=== PATIENT | female | born 1965 | race African-American/Black ===

== ENCOUNTER 2018-10-26 01:10 | Inpatient (IN) | payer MEDICAID ==
[~2018-10-26] VITALS: Ht 160 cm; Wt 86.7 kg
[2018-10-26 01:10] VITALS: BP 174/103
[2018-10-26 03:53] LABS: ANION GAP 11.2 (8-16); CARBON DIOXIDE 28.2 mmol/L (21-32); POTASSIUM 3.4 mmol/L (3.5-5.1)
[2018-10-26 03:54] LABS: ALBUMIN 3.4 g/dL (3.4-5.0); CREATININE 0.8 mg/dL (0.6-1.3); TOTAL BILIRUBIN 0.4 mg/dL (0.0-1.0)
[2018-10-26 03:59] LABS: BARBITURATE, URINE NEG. ng/ml (NEG <=200); BENZODIAZEPINE, URINE NEG. ng/mL (NEG <=200); CANNABINOID, URINE NEG. ng/mL (NEG <=50); COCAINE, URINE NEG. ng/mL (NEG <=300); OPIATE, URINE NEG. ng/mL (NEG <=2000); PHENCYCLIDINE SCREEN,URINE NEG. ng/mL (NEG <=25)
[2018-10-26 04:11] LABS: BASOPHILS % (AUTO) 0.4 % (0.0-2.0); EOSINOPHILS # (AUTO) 0.1 K/uL (0-0.4); EOSINOPHILS % (AUTO) 0.9 % (0.0-4.0); HEMATOCRIT 41.7 % (36-48); HEMOGLOBIN 14.1 g/dL (12.0-16.0); LYMPHOCYTES # (AUTO) 2.3 K/uL (2.5-16.5); LYMPHOCYTES % (AUTO) 30.9 % (20.5-51.1); MEAN CORPUSCULAR HEMOGLOBIN 33 pg (27-31); MEAN CORPUSCULAR HGB CONC 34 g/dL (33-37); MEAN CORPUSCULAR VOLUME 96.9 fL (80-94); MONOCYTES # (AUTO) 0.3 K/uL (0.8-1.0); MONOCYTES % (AUTO) 3.4 % (1.7-9.3); NEUTROPHILS # (AUTO) 4.9 K/uL (1.8-7.7); NEUTROPHILS % (AUTO) 64.4 % (42.2-75.2); PLATELET COUNT (AUTO) 243 K/uL (140-450); RED CELL DISTRIBUTION WIDTH 12.8 % (11.6-13.7); WHITE BLOOD COUNT (AUTO) 7.6 K/uL (4.8-10.8)
[2018-10-26 04:20] LABS: SALICYLATE < 2.8 mg/dL (2.8-20.0)
[2018-10-26 06:45] LABS: CREATINE KINASE MB 1.7 ng/mL (0-3.6)
[2018-10-26] MEDS ORDERED: ACETAMINOPHEN 325 MG TAB PO PRN (08:50)
[2018-10-26] MEDS ORDERED: HYDROcodone/APAP 7.5/325 MG 1 TAB PO PRN (08:50)
[2018-10-26] MEDS ORDERED: ONDANSETRON 4 MG/2 ML VIAL IVP PRN (08:50)
[2018-10-26] MEDS ORDERED: NACL 0.9% 1,000 ML IV ONE (09:00)
[2018-10-26] MEDS ORDERED: DOCUSATE SODIUM 100 MG GELCAP PO SCH (09:30)
[2018-10-26 10:00] VITALS: BP 142/87
[2018-10-26] MEDS ORDERED: POTASSIUM CHLORIDE 10 MEQ TABER PO SCH (10:00)
[2018-10-26] MEDS ORDERED: ZIPR20CA1 PO (10:44)
[2018-10-26] MEDS ORDERED: DIPH25SG5 PO (10:44)
[2018-10-26] MEDS ORDERED: MIRT15OD PO (10:44)
[2018-10-26] MEDS ORDERED: ORE25 PO (10:47)
[2018-10-26] MEDS ORDERED: ZIPRASIDONE 40 MG CAP PO ONE ×2 (10:50→11:00)
[2018-10-26] MEDS ORDERED: HYDROCHLOROTHIAZIDE 25 MG TAB PO SCH (11:00)
[2018-10-26] MEDS ORDERED: ZIPRASIDONE 40 MG CAP PO SCH ×3 (11:20→17:00)
[2018-10-26 11:24] LABS: AMYLASE 90 U/L (25-115); HDL CHOLESTEROL 67 mg/dL (40-60); LDL (CALC) 93 mg/dL (60-100); MAGNESIUM 2.1 mg/dL (1.8-2.4); PHOSPHORUS 3.8 mg/dL (2.5-4.9); TRIGLYCERIDES 45 mg/dL (30-150)
[2018-10-26 11:25] LABS: LIPASE 256 U/L (73-393)
[2018-10-26 11:33] LABS: PROTHROMBIN TIME 9.5 secs (10.8-13.4)
[2018-10-26 11:46] LABS: FREE T4 (FREE THYROXINE) 0.97 ng/dL (0.76-1.46); THYROID STIMULATING HORMONE 1.04 uIU/mL (0.34-3.74)
[2018-10-26 11:55] LABS: APPEARANCE,URINE SL CLOUDY (CLEAR); BILIRUBIN,URINE NEGATIVE (NEGATIVE); BLOOD, URINE NEGATIVE (NEGATIVE); COLOR,URINE YELLOW (YELLOW); LEUKOCYTE ESTERASE ,URINE SMALL (NEGATIVE); NITRITE, URINE NEGATIVE (NEGATIVE); UGLUCOSE NEGATIVE (NEGATIVE)
[2018-10-26 12:49] LABS: RBC,URINE 0-5 (RARE) /HPF (0-5); WBC,URINE 6-15 (FEW) /HPF (0-5)
[2018-10-26 16:00] VITALS: BP 138/80
[2018-10-26 20:00] VITALS: BP 127/80
[2018-10-26] MEDS ORDERED: MIRTAZAPINE 15 MG TAB PO SCH (21:00)
[2018-10-26] MEDS: DOCUSATE SODIUM 100 MG GELCAP PO SCH (21:08)
[2018-10-27] VITALS: BP 125/69
[2018-10-27 08:00] VITALS: BP 129/89
[2018-10-27] MEDS ORDERED: HYDROCHLOROTHIAZIDE 25 MG TAB PO SCH ×2 (09:00)
[2018-10-27] MEDS ORDERED: ZIPRASIDONE 40 MG CAP PO SCH (09:00)
[2018-10-27] MEDS: DOCUSATE SODIUM 100 MG GELCAP PO SCH (10:19)
[2018-10-27] MEDS ORDERED: LOTC TP (14:06)
[2018-10-27] MEDS ORDERED: CLOTRIMAZOLE 1% 30 GM CRM TUBE TP SCH (15:00)
== END 2018-10-27 14:55 | disposition home or self-care (01) | DRG 425 ==
LOC: MED 01:10 → MTU 08:52
PROVIDERS: ADMIT General Practice; ATTEND General Practice
DX: E87.6 Hypokalemia (principal); E11.65 Type 2 diabetes mellitus with hyperglycemia; R45.851 Suicidal ideations; F31.9 Bipolar disorder, unspecified; E66.9 Obesity, unspecified; I10 Essential (primary) hypertension; J45.909 Unspecified asthma, uncomplicated; F17.210 Nicotine dependence, cigarettes, uncomplicated; Z68.34 Body mass index [BMI] 34.0-34.9, adult; Z79.899 Other long term (current) drug therapy
CPT/HCPCS: 36415; 71045; 80053; 80305; 81001; 81025; 82150; 82550; 82553; 83036; 83690; 83735; 83880; 84100; 84439; 84443; 84484; 85025; 85610; 85730; 87081; 87086; 93005; 99285; G0480; G0482; Q0092; Q0163

== ENCOUNTER 2019-01-21 22:46 | Inpatient (IN) | payer MEDICAID ==
[~2019-01-21] VITALS: Ht 162.6 cm; Wt 89.4 kg
[~2019-01-21 22:46] MED LIST: DIPH25SG5 PO; LOTC TP; MIRT15OD PO; ORE25 PO; ZIPR20CA1 PO
[2019-01-21] MEDS ORDERED: diphenhydrAMINE 50 MG/ML VIAL IVP ONE (23:00)
[2019-01-21] MEDS ORDERED: LORazepam 1 MG TAB PO ONE (23:00)
[2019-01-21 23:01] VITALS: BP 126/81
--- NOTE | 2019-01-21 23:02 | NUR ---
PT BIBA FOR CP, RASH, AND COUGH. PT REPORTS SHARP 8/10 NON RADIATING CP FOR 2 HOURS. PT STATESW PAIN CAME ON SUDDENLY. [facility] GAVE 325 ASPIRIN AND 1 NITRO. PT HAS NO EDEMA PRESENT, RADIAL PULSES EVEN 2+, S1 AND S2 HEARD. PT HAS RASH COVERING WHOLE BODY, PT REPORTS SHE FIRST NOTICED RASH TODAY, STATES RASH IS ITCHY, DENIES PAIN FROM RASH. PRESENCE OF MOIST PRODUCTIVE COUGH. PT REPORTS THICK GREEN SPUTUM, PT IS SMOKER. RR EVEN, NON-LABORED, LUNG SOUNDS CLEAR THROUGHOUT. ER MD TO SEE PT. WILL CONTINUE TO MONITOR.
[2019-01-21 23:24] LABS: BASOPHILS # (AUTO) 0.1 K/uL (0.00-0.22); BASOPHILS % (AUTO) 1.1 % (0.0-2.0); EOSINOPHILS % (AUTO) 0.1 % (0.0-4.0); HEMATOCRIT 39.8 % (36-48); HEMOGLOBIN 13.3 g/dL (12.0-16.0); LYMPHOCYTES # (AUTO) 0.9 K/uL (2.5-16.5); LYMPHOCYTES % (AUTO) 14.7 % (20.5-51.1); MEAN CORPUSCULAR HEMOGLOBIN 32 pg (27-31); MEAN CORPUSCULAR HGB CONC 34 g/dL (33-37); MEAN CORPUSCULAR VOLUME 95.6 fL (80-94); MONOCYTES # (AUTO) 0.3 K/uL (0.8-1.0); NEUTROPHILS # (AUTO) 4.6 K/uL (1.8-7.7); NEUTROPHILS % (AUTO) 79.1 % (42.2-75.2); PLATELET COUNT (AUTO) 143 K/uL (140-450); RED BLOOD CELL COUNT(AUTO) 4.17 MIL/uL (4.20-5.40); RED CELL DISTRIBUTION WIDTH 12.8 % (11.6-13.7); WHITE BLOOD COUNT (AUTO) 5.8 K/uL (4.8-10.8)
[2019-01-21 23:27] LABS: ANION GAP 12.7 (8-16); CARBON DIOXIDE 24.5 mmol/L (21-32); POTASSIUM 3.2 mmol/L (3.5-5.1)
[2019-01-21 23:30] LABS: ALBUMIN 3.3 g/dL (3.4-5.0); TOTAL BILIRUBIN 0.4 mg/dL (0.0-1.0)
[2019-01-21 23:36] LABS: CREATINE KINASE MB 0.6 ng/mL (0-3.6)
--- NOTE | 2019-01-21 23:45 | NUR ---
PT RESTING IN BED WITH EYES CLOSED. PT STATED SHE IS NOT ABLE TO PROVIDE URINE AT THIS TIME. PT DENIES PRUITIS AT THIS TIME, RASH STILL VISIBLE OVER BODY. WILL CONTINUE TO MONITOR.
--- NOTE | 2019-01-22 00:19 | NUR ---
PT ABLE TO GIVE URINE SAMPLE AT THIS TIME.
[2019-01-22 00:29] LABS: BARBITURATE, URINE NEG. ng/ml (NEG <=200); BENZODIAZEPINE, URINE NEG. ng/mL (NEG <=200); CANNABINOID, URINE NEG. ng/mL (NEG <=50); COCAINE, URINE NEG. ng/mL (NEG <=300); OPIATE, URINE NEG. ng/mL (NEG <=2000); PHENCYCLIDINE SCREEN,URINE NEG. ng/mL (NEG <=25)
[2019-01-22] MEDS ORDERED: DOCUSATE SODIUM 100 MG GELCAP PO PRN (01:25)
[2019-01-22] MEDS ORDERED: HYDROcodone/APAP 5/325 MG 1 TAB TAB PO PRN (01:25)
[2019-01-22] MEDS ORDERED: MORPHINE SULFATE 4 MG/ML SYR IVP PRN (01:25)
[2019-01-22] MEDS ORDERED: ACETAMINOPHEN 325 MG TAB PO PRN (01:25)
[2019-01-22] MEDS ORDERED: ONDANSETRON 4 MG/2 ML VIAL IM/IVP PRN (01:25)
[2019-01-22 02:01] LABS: CHOL/HDL RATIO 3.3 (1-4.5); MAGNESIUM 1.8 mg/dL (1.8-2.4); PHOSPHORUS 2.9 mg/dL (2.5-4.9); THYROID STIMULATING HORMONE 1.11 uIU/mL (0.34-3.74)
--- NOTE | 2019-01-22 02:05 | NUR ---
TRANSFER TO 126-A VIA WHEELCHAIR WITH RN AND EMT
[2019-01-22 02:10] VITALS: BP 121/81
--- NOTE | 2019-01-22 02:10 | NUR ---
RECEIVED PATIENT STABLE CONDITION FROM ER. PATIENT RESPIRATION EVEN UNLABORED ON ROOM AIR. AOX4. VITALS STABLE. DENIES PAIN. SKIN IS WARM AND DRY. IV INTACT AND PATENT. MRSA NARES SWAB. ORIENT PATIENT TO ROOM, STAFF, AND CALL LIGHT. PLAN OF CARE WAS DISCUSSED. ALL SAFETY MEASURE IN PLACE. BED IS AT LOW POSITION. CALL LIGHT WITHIN REACH.
--- NOTE | 2019-01-22 02:10 | NUR ---
Patient will be admitted to care of [facility]. Admited to TELE WITH VSS. Will go to room 125A. Belongings list completed. Report to ALICJA RIVERO.
[2019-01-22] MEDS: NACL 0.9% 1,000 ML IV SCH ×3 (02:42→21:32)
[2019-01-22] MEDS ORDERED: NITROGLYCERIN 0.4 MG TAB SL PRN (02:45)
[2019-01-22] MEDS ORDERED: POTASSIUM CHLORIDE 10 MEQ TABER PO ONE (02:45)
[2019-01-22 03:01] LABS: PROTHROMBIN TIME 9.7 secs (10.8-13.4)
--- NOTE | 2019-01-22 03:14 | NUR ---
PATIENT COMPLAINED OF ITCHINESS. PRN BENADRYL ADMINISTERED PER ORDER. RESPIRATION EVEN UNLABORED ON ROOM AIR. WILL CONTINUE TO MONITOR.
--- NOTE | 2019-01-22 04:00 | NUR ---
PATIENT SLEEPING COMFORTABLY RESPIRATION EVEN UNLABORED ON ROOM AIR. NO ITCHY AND DISTRESS NOTED. CALL LIGHT WITHIN REACH. WILL CONTINUE TO MONITOR.
--- NOTE | 2019-01-22 06:45 | NUR ---
PATIENT IV INFILTRATED. DC NO ACTIVE BLEEDING SEEN. CANNULA INTACT. NEW IV SITE STARTED TO THE LEFT FOREARM CLEAR AND PATENT WILL CONTINUE TO MONITOR.
--- NOTE | 2019-01-22 07:07 | NUR ---
ENDORSED PATIENT TO DAY SHIFT NURSE FOR CONTINUITY OF CARE. PATIENT IS STABLE AT THIS TIME. NO DISTRESS NOTED.
--- NOTE | 2019-01-22 07:08 | NUR ---
RECEIVED REPORT FROM LAWYERS NURSE. PATIENT LYING DOWN IN BED SLEEPING, AROUSABLE BY VOICE. NO DISTRESS NOTED. COMPLAINS OF MILD SHARP CHEST PAIN THAT IS WITHIN TOLERABLE AT THIS TIME. AAOX4, CALM, COOPERATIVE, SKIN COLOR APPROPRIATE TO ETHNICITY, WARM TO TOUCH. SKIN INTACT, HOWEVER, HAS RASHES NOTED THROUGHOUT FACE AND B/L UPPER ARMS. DENIES PRURITIS ON RASH AT THIS TIME. IV SITE INTACT, PATENT, AND INFUSING IVF PER MD ORDERS. REVIEWED PLAN OF CARE WITH PATIENT. PATIENT VERBALIZED UNDERSTANDING. SAFETY MEASURES IN PLACE, CALL LIGHT WITHIN REACH. WILL CONTINUE TO MONITOR.
[2019-01-22 07:41] LABS: ANION GAP 11.6 (8-16); CARBON DIOXIDE 27.3 mmol/L (21-32); CREATININE 0.8 mg/dL (0.6-1.3); POTASSIUM 3.9 mmol/L (3.5-5.1)
[2019-01-22 07:50] LABS: BASOPHILS % (AUTO) 0.3 % (0.0-2.0); EOSINOPHILS % (AUTO) 0.7 % (0.0-4.0); HEMATOCRIT 40.2 % (36-48); HEMOGLOBIN 13.6 g/dL (12.0-16.0); LYMPHOCYTES # (AUTO) 0.8 K/uL (2.5-16.5); LYMPHOCYTES % (AUTO) 18.6 % (20.5-51.1); MEAN CORPUSCULAR HEMOGLOBIN 33 pg (27-31); MEAN CORPUSCULAR HGB CONC 34 g/dL (33-37); MEAN CORPUSCULAR VOLUME 95.8 fL (80-94); MONOCYTES # (AUTO) 0.4 K/uL (0.8-1.0); MONOCYTES % (AUTO) 9.9 % (1.7-9.3); NEUTROPHILS # (AUTO) 3.1 K/uL (1.8-7.7); NEUTROPHILS % (AUTO) 70.5 % (42.2-75.2); PLATELET COUNT (AUTO) 129 K/uL (140-450); RED BLOOD CELL COUNT(AUTO) 4.19 MIL/uL (4.20-5.40); RED CELL DISTRIBUTION WIDTH 12.5 % (11.6-13.7); WHITE BLOOD COUNT (AUTO) 4.4 K/uL (4.8-10.8)
[2019-01-22 08:00] VITALS: BP 139/83
--- NOTE | 2019-01-22 08:10 | NUR ---
PATIENT HAS BEEN SCREENED AND CATEGORIZED HIGH NUTRITION RISK. PATIENT WILL BE SEEN WITHIN 1-2 DAYS OF ADMISSION. 01/22/19-01/23/[address]
[2019-01-22] MEDS: LISINOPRIL 5 MG TAB PO SCH (08:56)
[2019-01-22] MEDS: HYDROCHLOROTHIAZIDE 25 MG TAB PO SCH (08:57)
[2019-01-22] MEDS: ASPIRIN 81 MG TAB.CHEW PO SCH (08:57)
[2019-01-22] MEDS: METOPROLOL 25 MG TAB PO SCH ×2 (08:57→21:23)
--- NOTE | 2019-01-22 09:00 | NUR ---
PATIENT LYING DOWN IN BED SLEEPING, AROUSABLE BY VOICE. NO DISTRESS NOTED. PAIN WITHIN TOLERABLE. SCHEDULED MEDICATIONS DUE GIVEN. WILL CONTINUE TO MONITOR.
[2019-01-22] MEDS ORDERED: predniSONE 20 MG TAB PO SCH (11:00)
--- NOTE | 2019-01-22 11:43 | NUR ---
PATIENT COMPLAINS OF PRURITIS ON BACK AREA, BENADRYL PO GIVEN. OTHER SCHEDULED MEDICATIONS DUE GIVEN. WILL CONTINUE TO MONITOR.
[2019-01-22 12:00] VITALS: BP 133/87
[2019-01-22] MEDS: hydrOXYzine HCL 25 MG TAB PO SCH ×2 (13:41→17:53)
[2019-01-22 13:52] LABS: APPEARANCE,URINE CLEAR (CLEAR); BILIRUBIN,URINE NEGATIVE (NEGATIVE); BLOOD, URINE TRACE-I (NEGATIVE); COLOR,URINE YELLOW (YELLOW); LEUKOCYTE ESTERASE ,URINE NEGATIVE (NEGATIVE); NITRITE, URINE NEGATIVE (NEGATIVE); UGLUCOSE NEGATIVE (NEGATIVE)
--- NOTE | 2019-01-22 13:53 | NUR ---
01/22/19 RD INITIAL ASSESSMENT COMPLETED PLEASE REFER TO NUTRITION ASSESSMENT UNDER CARE ACTIVITY FOR ESTIMATED NUTRITIONAL NEEDS. 1. CONTINUE CARDIAC DIET TOLERATED 2. RD TO FOLLOW UP ON ADEQUATE PO INTAKE, IF AVERAGE INTAKE < 75%, RECOMMEND ENSURE 3. RD TO FOLLOW-UP 3-5 DAYS, MODERATE RISK GLENDY MONIQUE, RD
[2019-01-22 13:54] LABS: RBC,URINE 0-5 (RARE) /HPF (0-5); WBC,URINE 0-5 (RARE) /HPF (0-5)
[2019-01-22 16:00] VITALS: BP 118/80
--- NOTE | 2019-01-22 16:30 | NUR ---
PATIENT LYING DOWN IN BED SLEEPING, AROUSABLE BY VOICE. NO DISTRESS NOTED. CONDITION UNCHANGED. WILL CONTINUE TO MONITOR.
--- NOTE | 2019-01-22 19:16 | NUR ---
GAVE REPORT TO SPECIAL EFFECTS SPECIALIST NURSE FOR CONTINUITY OF CARE. PATIENT IN STABLE CONDITION.
--- NOTE | 2019-01-22 19:35 | NUR ---
RECEIVED ENDORSEMENT FROM AM SHIFT RN. PATIENT A/Ox4, ABLE TO MAKE NEEDS KNOWN. AROUSABLE BY VOICE. NO SOB OR DISTRESS NOTED. IV ON RIGHT ANTECUBITAL, 20 GAUGE, INTACT AND PATENT, INFUSING IVF ORDERED. SKIN INTACT, HOWEVER, HAS RASHES NOTED THROUGHOUT FACE AND B/L UPPER ARMS. REVIEWED PLAN OF CARE WITH PATIENT. PATIENT VERBALIZED UNDERSTANDING. SAFETY MEASURES IN PLACE. BED IN THE LOWEST POSITION, CALL LIGHT WITHIN REACH. INITIAL ASSESSMENT DONE. WILL CONTINUE TO MONITOR.
[2019-01-22 20:00] VITALS: BP 108/54
[2019-01-22] MEDS: ZIPRASIDONE 40 MG CAP PO SCH (21:22)
[2019-01-22] MEDS: MIRTAZAPINE 15 MG TAB PO SCH (21:23)
--- NOTE | 2019-01-22 21:25 | NUR ---
ROUNDS DONE, PATIENT WATCHING TV, NO SOB OR DISTRESS NOTED.
--- NOTE | 2019-01-22 23:40 | NUR ---
VITALS TAKEN, PATIENT COMPLAINED OF PRUITIS ON FACE AND CHEST. BENADRYL 1 TAB ADMINISTERED PER MD ORDERS. WILL CONTINUE TO MONITOR.
[2019-01-23] VITALS: BP 115/70
--- NOTE | 2019-01-23 01:10 | NUR ---
FREQUENT CHECKS MADE. PATIENT ASLEEP, EYES CLOSED, VISIBLE CHEST RISE AND FALL NOTED.
--- NOTE | 2019-01-23 03:58 | NUR ---
ROUNDS DONE, VITALS TAKEN. PATIENT ASLEEP, VISIBLE CHEST RISE AND FALL NOTED.
[2019-01-23 04:00] VITALS: BP 99/54
[2019-01-23] MEDS: NACL 0.9% 1,000 ML IV SCH ×2 (06:52→16:46)
--- NOTE | 2019-01-23 07:15 | NUR ---
ENDORSED PATIENT TO AM SHIFT RN. PATIENT IN STABLE CONDITION.
--- NOTE | 2019-01-23 07:16 | NUR ---
RECEIVED BEDSIDE REPORT FROM HOSPITAL MANAGER NURSE. PATIENT IS AWAKE, ALERT AND ORIENTEDX4. NO SIGNS OF DISTRESS ON RA. IV ON L FA 22G INFUSING NS 100. CLEAN, DRY AND INTACT. PATIENT IS AMBULATORY, GAIT IS STEADY. CONTINENT. TELE MONITOR IN PLACE. NO COMPLAINTS AT THIS TIME. WILL CONTINUE TO MONITOR THE PATIENT
[2019-01-23 08:00] VITALS: BP 122/67
[2019-01-23 08:02] LABS: BASOPHILS % (AUTO) 0.5 % (0.0-2.0); EOSINOPHILS % (AUTO) 0.8 % (0.0-4.0); HEMATOCRIT 38.3 % (36-48); HEMOGLOBIN 12.7 g/dL (12.0-16.0); LYMPHOCYTES # (AUTO) 2.1 K/uL (2.5-16.5); MEAN CORPUSCULAR HEMOGLOBIN 32 pg (27-31); MEAN CORPUSCULAR HGB CONC 33 g/dL (33-37); MEAN CORPUSCULAR VOLUME 96.8 fL (80-94); MONOCYTES # (AUTO) 0.5 K/uL (0.8-1.0); MONOCYTES % (AUTO) 11.1 % (1.7-9.3); NEUTROPHILS # (AUTO) 2.2 K/uL (1.8-7.7); NEUTROPHILS % (AUTO) 44.6 % (42.2-75.2); PLATELET COUNT (AUTO) 137 K/uL (140-450); RED BLOOD CELL COUNT(AUTO) 3.96 MIL/uL (4.20-5.40); RED CELL DISTRIBUTION WIDTH 12.9 % (11.6-13.7); WHITE BLOOD COUNT (AUTO) 4.9 K/uL (4.8-10.8)
[2019-01-23 08:03] LABS: ANION GAP 12.8 (8-16); CARBON DIOXIDE 25.8 mmol/L (21-32); CREATININE 0.9 mg/dL (0.6-1.3); POTASSIUM 3.6 mmol/L (3.5-5.1)
[2019-01-23] MEDS: TRIAMCINOLONE 0.1% CRM 15 GM TUBE TP SCH ×2 (09:37→21:00)
[2019-01-23] MEDS: ASPIRIN 81 MG TAB.CHEW PO SCH (09:37)
[2019-01-23] MEDS: predniSONE 20 MG TAB PO SCH (09:37)
[2019-01-23] MEDS: LISINOPRIL 5 MG TAB PO SCH (09:37)
[2019-01-23] MEDS: HYDROCHLOROTHIAZIDE 25 MG TAB PO SCH (09:38)
[2019-01-23] MEDS: hydrOXYzine HCL 25 MG TAB PO SCH ×3 (09:38→16:45)
[2019-01-23] MEDS: METOPROLOL 25 MG TAB PO SCH (09:38)
--- NOTE | 2019-01-23 09:44 | NUR ---
ADMINISTERED MEDS. PATIENT TOLERATED WELL. APPLIED CREAM TO LESIONS. PATIENT WANTED IT ON HER FACE BUT TOLD HER IT IS CONTRAINDICATED ON THE FACE. PATIENT VERBALIZED UNDERSTANDING. WILL CONTINUE TO MONITOR
--- NOTE | 2019-01-23 11:00 | NUR ---
PATIENT IS SLEEPING. NO SIGNS OF DISTRESS ON RA. WILL CONTINUE TO MONITOR THE PATIENT.
[2019-01-23 12:00] VITALS: BP 112/69
--- NOTE | 2019-01-23 13:00 | NUR ---
PATIENT IS EATING. NO SIGNS OF DISTRESS. WILL CONTINUE TO MONITOR THE PATIENT.
--- NOTE | 2019-01-23 14:50 | NUR ---
PATIENT REQUESTING PUDDING. GAVE PATIENT PUDDING. NO COMPLAINTS AT THIS TIME. WILL CONTINUE TO MONITOR THE PATIENT.
[2019-01-23] MEDS ORDERED: HYDROCORTISONE 0.5% CRM 30 GM TUBE TP SCH (15:03)
[2019-01-23 16:00] VITALS: BP 125/72
[2019-01-23 16:01] LABS: T4 (THYROXINE) 5.5 ug/dL (4.5-12.0)
[2019-01-23] MEDS ORDERED: HYDROCORTISONE 1% CRM 30 GM TUBE TP SCH ×2 (16:02→16:03)
--- NOTE | 2019-01-23 16:11 | NUR ---
PATIENT APPLIED CREAM TO HER AFFECTED AREAS IN HER FACE. PATIENT TOLERATED WELL. WILL CONTINUE TO MONITOR THE PATIENT.
--- NOTE | 2019-01-23 16:48 | NUR ---
administered as scheduled meds. patient tolerated well. new ns bag infusing. patient said shes so hungry, called fns and asked if patient can have chicken sandwich. they said d/t cardiac diet she cannot have sandwich and tray. patient said she will just wait for dinner tray then
--- NOTE | 2019-01-23 18:50 | NUR ---
PATIENT CLEANING HERSELF UP. GAVE HER WASH CLOTHS AND A TOWEL
--- NOTE | 2019-01-23 19:21 | NUR ---
GAVE BEDSIDE REPORT TO OIL FIELD PUMPER NURSE. PATIENT ENDORSED IN STABLE CONDITION
--- NOTE | 2019-01-23 19:22 | NUR ---
RECEIVED REPORT AT BEDSIDE FROM ANG RN DAYSHIFT NURSE, PT IN STABLE CONDITION.
--- NOTE | 2019-01-23 19:42 | NUR ---
PT IS AOX4 AND B/P AMBULATING AROUND THE ROOM. PT C/O 6/10 PAIN ON LEFT SIDE , GIVEN NORCO 5/325MG PO/PRN. V/S FOLLOWS T 97.2 P 82 R 18 B/P 123/83 02 99% ON ROOM AIR.
[2019-01-23 20:00] VITALS: BP 123/83
[2019-01-23] MEDS: MIRTAZAPINE 15 MG TAB PO SCH (20:42)
[2019-01-23] MEDS: ZIPRASIDONE 40 MG CAP PO SCH (20:47)
--- NOTE | 2019-01-23 20:47 | NUR ---
PT SITTING UP IN BED NO S/S OF PAIN OR DISTRESS NOTED. PT SAID THAT THE NORCO HELPED HER PAIN. PT REFUSED GEODON AND HEPARIN. RISKS AND BENEFITS EXPLAINED.
[2019-01-23] MEDS: HYDROCORTISONE 1% CRM 30 GM TUBE TP SCH (21:00)
[2019-01-24] VITALS: BP 126/69
--- NOTE | 2019-01-24 00:34 | NUR ---
PT IN LOW BED AND CALL BACA IN REACH, NO C/O VOICED V/S FOLLOWS T 97.0 P 77 R 18 B/P 126/69 02 98 ON R/A.
--- NOTE | 2019-01-24 01:30 | NUR ---
PT AWAKE AND REQUESTING SANDWICH FOR SNACK WHICH WAS PROVIDED.
[2019-01-24 04:00] VITALS: BP 123/60
--- NOTE | 2019-01-24 04:00 | NUR ---
PT IN BED RESTING WITH EYES CLOSED BUT AROUSABLE TO NAME AND LIGHT TOUCH. NO C/O VOICED V/S FOLLOWS T 97.0 P 77 R 18 B/P 126/69 02 98% ON ROOM AIR. BED LOW AND CLL BACA IN REACH.
--- NOTE | 2019-01-24 07:30 | NUR ---
RECEIVED PT AAOX4, NO SOB NOTED. NO C/O PAIN AT THIS TIME. IV TO LT HAND PATENT AND INTACT. CHEST, DIMINISHED AIR ENTRY TO THE BASES. ABDOMEN SOFT, BOWEL SOUNDS PRESENT. INSTRUCTED PT TO CALL FOR ASSISTANCE, CALL LIGHT WITHIN REACH, VERBALIZED UNDERSTANDING.
--- NOTE | 2019-01-24 07:30 | NUR ---
CARE ENDORSED TO KIMI JOHNSON RN, PT IN BED IN STABLE CONDITION. N/S FLUIDS REPLACED. IV SITE ON LAC INTACT AND FLUSHED PATENT.
[2019-01-24 08:00] VITALS: BP 133/79
[2019-01-24] MEDS ORDERED: HYD1C TP (08:24)
[2019-01-24] MEDS ORDERED: ATA25 PO (08:24)
[2019-01-24] MEDS ORDERED: KEN.1C TP (08:24)
[2019-01-24] MEDS ORDERED: ASPI81CT95 PO (08:25)
[2019-01-24] MEDS: HYDROCHLOROTHIAZIDE 25 MG TAB PO SCH (09:00)
--- NOTE | 2019-01-24 09:30 | NUR ---
PT HAD SHOWER. ACTIVITY TOLERATED WELL. NO COMPLAINTS MADE.
[2019-01-24] MEDS: TRIAMCINOLONE 0.1% CRM 15 GM TUBE TP SCH (10:06)
[2019-01-24] MEDS: HYDROCORTISONE 1% CRM 30 GM TUBE TP SCH (10:06)
[2019-01-24] MEDS: ASPIRIN 81 MG TAB.CHEW PO SCH (10:06)
[2019-01-24] MEDS: predniSONE 20 MG TAB PO SCH (10:07)
[2019-01-24] MEDS: hydrOXYzine HCL 25 MG TAB PO SCH (10:08)
--- NOTE | 2019-01-24 10:30 | NUR ---
DISCHARGE INSTRUCTIONS AND PRESCRIPTIONS GIVEN TO PT WHICH VERBALIZED FULL UNDERSTANDING OF THE INSTRUCTIONS GIVEN AND THE NEED TO FOLLOW UP WITH PCP WITHIN 7 DAYS. PT STATED SHE WILL KEEP HER ARTM BAND. IV REMOVED, CANNULA TIP INTACT. PT STATED SHE DOES NOT ANY MONEY AND NEEDED A BUS PASS. [facility] PROVIDED PT A BUS PASS.
--- NOTE | 2019-01-24 10:45 | NUR ---
ESCORTED PT TO THE FRONT LOBBY, AMBULATORY, BRANT STEADY GAIT. NO SOB NOTED. NO COMPLAINTS MADE. PT IS D/C HOME IN STABLE CONDITION.
== END 2019-01-24 10:45 | disposition home or self-care (01) | DRG 203 ==
LOC: MED 22:46 → MMU 01-22 01:24
PROVIDERS: ADMIT General Practice; ATTEND General Practice
DX: M94.0 Chondrocostal junction syndrome [Tietze] (principal); D69.6 Thrombocytopenia, unspecified; R65.10 Systemic inflammatory response syndrome (SIRS) of non-infectious origin without acute organ dysfunction; L50.9 Urticaria, unspecified; F31.9 Bipolar disorder, unspecified; E87.6 Hypokalemia; E66.9 Obesity, unspecified; E78.5 Hyperlipidemia, unspecified; J45.909 Unspecified asthma, uncomplicated; I10 Essential (primary) hypertension; L30.9 Dermatitis, unspecified; Z68.33 Body mass index [BMI] 33.0-33.9, adult; Z71.3 Dietary counseling and surveillance
CPT/HCPCS: 36415; 71045; 80048; 80053; 80305; 81001; 82150; 82550; 82553; 83036; 83605; 83690; 83735; 83880; 84100; 84436; 84443; 84484; 85025; 85610; 85730; 87081; 87804; 93005; 96374; 99285; J1200; J1644; J7030; J7512; Q0163